=== PATIENT | male | born 1950 | race Caucasian/White ===

== ENCOUNTER → 2017-05-18 | Outpatient (CLI) | payer OTHER, MEDICARE ==
[~2017-05-18] MED LIST: OMNIPAQUE 350 MG/ML, 100ML BOTTLE ONE
== END | disposition home or self-care (01) ==
LOC: CFH 08:25
PROVIDERS: ATTEND Nurse Practitioner Primary Care
DX: R93.1 Abnormal findings on diagnostic imaging of heart and coronary circulation (principal); N28.1 Cyst of kidney, acquired; E55.9 Vitamin D deficiency, unspecified; E78.2 Mixed hyperlipidemia; I10 Essential (primary) hypertension; R53.82 Chronic fatigue, unspecified; F06.4 Anxiety disorder due to known physiological condition; K21.9 Gastro-esophageal reflux disease without esophagitis; Q25.49 Other congenital malformations of aorta; Z79.899 Other long term (current) drug therapy
CPT/HCPCS: 71275; 93978; Q9967